=== PATIENT | female | born 1945 | race Caucasian/White ===

== ENCOUNTER 2023-10-29 10:06 | Emergency (ER) | payer OTHER, SELFPAY ==
[2023-10-29 10:15] VITALS: BP 138/83
[2023-10-29] MEDS: NSS 500 IV (12:04)
[2023-10-29] MEDS: TYLENOL 1000 MG PO (12:12)
[2023-10-29 12:28] LABS: % Basophils 0.6 % (0-2); % Eosinophils 0.2 % (0-6); % Immature Granulocytes 1.5 % (0-0.5); % Monocytes 8.7 % (1.7-9.3); Absolute Basophils 0.1 10^3/uL (0-0.2); Absolute Immature Granulocytes 0.1 10^3/uL (0-0.05); Absolute Lymphocytes 0.8 10^3/uL (1.2-3.4); Absolute Monocytes 0.8 10^3/uL (0.1-0.6); Absolute Neutrophils 7.1 10^3/uL (1.4-6.5); Hematocrit 31.2 % (37.0-47.0); Hemoglobin 10.5 g/dL (12.0-16.0); Mean Corp Hgb Conc. 33.7 g/dL (33.0-37.0); Mean Corpuscular Hgb 38.7 pg (27.0-31.0); Mean Corpuscular Volume 115.1 fL (81.0-99.0); Mean Platelet Volume 9.6 fL (7.4-10.4); Nucleated Red Blood Cells % 0 %; Platelet Count 645 10^3/uL (130-400); Red Blood Cell Count 2.71 10^6/uL (4.20-5.40); Red Cell Dist. Width 12.6 % (11.5-14.5); White Blood Cell Count 8.8 10^3/uL (4.8-10.8)
[2023-10-29 12:39] LABS: ALT (SGPT) 28 U/L (0-35); AST (SGOT) 36 U/L (14-36); Albumin 3.5 g/dl (3.5-5.0); Alkaline Phosphatase 98 U/L (38-126); Blood Urea Nitrogen 17 mg/dl (7-17); Calcium 9.3 mg/dl (8.4-10.2); Carbon Dioxide 28 mmol/L (22-30); Chloride 100 mmol/L (98-107); Estimated Creatinine Clearance 54 ml/min; Glucose 98 mg/dl (70-99); Potassium 4.7 mmol/L (3.5-5.1); Sodium 136 mmol/L (135-145); Total Bilirubin 0.5 mg/dl (0.2-1.3); Total Protein 6.3 g/dl (6.3-8.2); eGFR > 60.00
[2023-10-29] MEDS: ROCEPHIN 2000 MG IV (14:02)
[2023-10-29] MEDS: ZITHROMAX INFUSION 250 IV (14:06)
[2023-10-29 14:11] VITALS: BP 119/65
[2023-10-29 16:16] VITALS: BP 114/59
--- NOTE | 2023-10-29 16:29 | ED.GENMED ---
History of Present Illness
General
Chief Complaint: Fever
Source: patient
Exam Limitations: none
Time Seen by Provider: 10/29/23 11:44
Nursing documentation reviewed up to this point in time: agreed with
History of Present Illness
History of Present Illness:
78-year-old female with past medical history of hyperlipidemia presenting to the emergency department today with concerns of recent pneumonia ongoing intermittent fevers and chills. Feels fatigued. Denies specific chest pain nausea vomiting.
Past History
Past History
ED Past Medical History: Hypercholesterolemia
Social History
Personal: Single
Living: with roommate
Review of Systems
Review of Systems
Allergies reviewed?: Yes
All Other Systems: ROS reviewed and negative except as documented in HPI and ROS
Phy Exam
Physical Exam
Physical Exam:
GENERAL: Alert , in no apparent distress
EYE: pupils equal and reactive
NECK: Supple, no significant adenopathy.
ENT: o/p clr, mmm.
CARDIAC: Regular rate and rhythm .
LUNGS: Decreased lung sounds to the left lower lungs otherwise clear breath sounds bilaterally, no acute respiratory distress, no wheezes/rales/rhonchi
ABDOMEN: Soft, without focal tenderness, no r/g, no cvat
NEUROLOGICAL: Alert and oriented, no focal neuro deficits
SKIN: Warm and dry, skin intact.
MUSCULOSKELETAL: No edema, well perfused.
PSYCH: Normal and appropriate interaction.
Course
Orders/Labs/Results
Orders:
Orders
10/29/23 11:59
0.9% Sodium Chloride 500 ml [Nss] 500 ml IV BOLUS
Acetaminophen [Tylenol] 1,000 mg PO NOW STA
10/29/23 12:00
Electrocardiogram (*1) Stat
Reason for Study: Other
Other Reason for Exam: pneumonia
EKG- Treatment ONCE
CR Chest - 2 Views Urgent
Comment:
Reason For Exam: cough fever, left sided adventitious sounds
10/29/23 12:03
Complete Blood Count/With Diff Urgent
Comprehensive Metabolic Panel Urgent
10/29/23 13:03
Azithromycin 500 mg/250 ml [Zithromax Infusion] 500 mg in 250 ml IV NOW
CefTRIAXone [Rocephin] 2,000 mg IV NOW STA
10/29/23 13:39
Sterile Water [Sterile Water For Injection] 20 ml .ROUTE .STK-MED
Abnormal Lab Results
10/29/23
12:03
RBC 2.71 L 10^6/uL
(4.20-5.40)
Hgb 10.5 L g/dL
(12.0-16.0)
Hct 31.2 L %
(37.0-47.0)
MCV 115.1 H fL
(81.0-99.0)
MCH 38.7 H pg
(27.0-31.0)
Plt Count 645 H 10^3/uL
(130-400)
Abs Immat Gran (auto) 0.1 H 10^3/uL
(0-0.05)
Absolute Neuts (auto) 7.1 H 10^3/uL
(1.4-6.5)
Absolute Lymphs (auto) 0.8 L 10^3/uL
(1.2-3.4)
Absolute Monos (auto) 0.8 H 10^3/uL
(0.1-0.6)
Immature Gran % 1.5 H %
(0-0.5)
Neutrophils % 80.0 H %
(42.2-75.2)
Lymphocytes % 9.0 L %
(20.5-51.1)
10/29/23 12:03
10/29/23 12:03
Vital Signs
Initial and Last Documented VS:
Initial Vital Signs
Temp Pulse Resp BP Pulse Ox
99.0 F 110 16 138/83 98
10/29/23 10:15 10/29/23 10:15 10/29/23 10:15 10/29/23 10:15 10/29/23 10:15
Last Documented Vital Signs
Temp Pulse Resp BP Pulse Ox
99.0 F 68 18 114/59 94
10/29/23 10:15 10/29/23 16:16 10/29/23 16:16 10/29/23 16:16 10/29/23 16:16
MDM/Problems Addressed
MDM/Problems Addressed:
78-year-old female presenting to the emergency department today with concerns of some ongoing upper respiratory symptoms. Upon arrival here temperature of 99.0 initially mildly tachycardic but improving without specific treatments. Labs
unremarkable no white count slightly low hemoglobin and elevated platelets. Normal EKG. Chest x-ray showing pleural effusion to the left side with possible underlying pneumonia. Concerning this and patient's description of symptoms patient was
started on an IV antibiotic. She was in the ER for multiple hours and claims that she currently feels very well is walking around the room normal pulse ox would like to go home. It was explained to her that there is a possibility of recurrent
pneumonia despite outpatient treatment that was offered the possibility to stay but patient would prefer to go home. Concern this patient written for additional course of antibiotics and advised for very close outpatient follow-up for reassessment
and repeat imaging of the pleural effusion.
*Critical Care Note
Total Time (30-74mins, 75-104mins- exclusive of procedures): Not Applicable
ED Attending Note
-
Portions of this chart may have been created with voice recognition software.� Occasional wrong word or��sound alike� substitutions may have occurred due to the inherent limitations of voice recognition software.
Discharge Plan
Departure
Patient Disposition: Home (Routine Discharge)
Date of Disposition: 10/29/23
Time of Disposition: 16:30
Patient with high blood pressure during this ER visit?: No
Condition: Good
Covid-19: Not Applicable
Discharge Problem:
Cough, Pleural effusion, Pneumonia
Instructions: Pleural effusion
Prescriptions:
New
cefpodoxime 200 mg tablet
200 mg PO BID 7 Days Qty: 14 0RF
azithromycin 500 mg tablet
500 mg PO DAILY 2 Days Qty: 2 0RF
No Action
lovastatin 40 MG tablet
40 mg PO QPM
calcium carbonate 600 MG tablet
1,200 mg PO BID
cholecalciferol (vitamin D3) 2,000 UNIT tablet
2,000 unit PO DAILY
hydroxyurea 500 mg Capsule
500 mg PO MOFR@0800,1700
hydroxyurea 500 mg Capsule
500 mg PO SUTUWETHSA@0800
aspirin 81 mg Tablet,Delayed Release (Dr/Ec)
81 mg PO DAILY
Mucinex DM 30-600 mg Tablet Extended Release 12 Hr
1 tab PO [id number] PRN (Reason: cough)
Referrals:
Natty Robertson, DO [Family Provider] -
Activity Restrictions/Additional Instructions:
You came to the emergency department today with concerns of ongoing symptoms after being treated with doxycycline. Here you had a reassuring assessment no white count and reassuring labs also normal EKG chest x-ray had some degree of effusion to
the left lung with possible findings of pneumonia. You were given additional antibiotic here. It is very important follow-up closely as an outpatient. Return to the emergency department for any worsening, new or concerning symptoms.
Interventions
Interventions:
*Risk Screen - Suicide Last Done: 10/29/23 12:24
*General Assessment Last Done: 10/29/23 12:24
*Neglect/Abuse Screening Last Done: 10/29/23 12:24
ED- Fall Risk Assessment Last Done: 10/29/23 12:23
*ED COVID-19 Vaccine History Last Done: 10/29/23 10:15
ED- Neurological Assessment Last Done: 10/29/23 12:23
ED-Skin Assessment Last Done: 10/29/23 12:23
Discharge Date and Time
Print Language: COLOMBIAN
== END 2023-10-29 16:36 | disposition home or self-care (01) ==
LOC: EMR 10:06
PROVIDERS: Physician Assistant; EMERGENCY PHYSICIAN Emergency Medicine; FAMILY PHYSICIAN Family Medicine
DX: J90 Pleural effusion, not elsewhere classified (principal); J18.9 Pneumonia, unspecified organism; R05.9 Cough, unspecified
CPT/HCPCS: 99285; 96365; 96375; 96361; 71046; 80053; 85025; 93005